=== PATIENT | male | born 1975 | race Caucasian/White ===

== ENCOUNTER 2017-11-23 17:13 | Emergency (ER) | payer OTHER, SELFPAY ==
[2017-11-23 19:03] VITALS: BP 132/102; PULSE 106; RESP 20; TEMP 37.7; O2SAT 98
[2017-11-23 19:06] VITALS: BMI 35.6
--- NOTE | 2017-11-23 19:08 | XR_ITS ---
XR chest 2V Ordering Physician: Terrance Abraham MD Patient Age: 42 years: Male HISTORY: ITS.REASON: PROD COUGH cough congestion TECHNIQUE: PA and lateral chest COMPARISON : None FINDINGS Peripheral lung thompson are clear with no pneumonia. Focal no focal infiltrate or parenchymal density.. The heart is normal in size. Normal pulmonary vascularity. No pleural effusions. No pneumothorax. Chest wall and T-spine unremarkable. Superior mediastinum appears satisfactory. Slightly generous/upper normal left dee. On lateral view there seems to be some prominence of hilar regions as well. Nonspecific.. Any outside old films would be very helpful for correlation. If cough persists low threshold for CT warranted to further evaluate dee particularly on left., And particularly if patient smoker IMPRESSION No focal pneumonia evident. Generous left dee upper normal prominence. Symptoms persist recommend follow-up chest film;, with low threshold for CT particular if patient smoker
[2017-11-23 19:20] VITALS: BP 155/89; PULSE 90; RESP 18; TEMP 37.7; O2SAT 96; BMI 35.8
[2017-11-23 19:29] LABS: Strep Scrn Group A (Rapid) Negative (Negative)
[2017-11-23 21:53] LABS: Basophils # 0.1 K/mm3 (0-0.2); Basophils % 1.5 % (0.1-2.0); Eosinophils # 0.1 K/mm3 (0.0-0.4); Eosinophils % 1.6 % (0.1-12.0); Hematocrit 50.7 % (42.0-52.0); Hemoglobin 17.2 g/dL (14.1-18.0); Lymphocytes % 22.8 K/mm3 (10-50); Mean Corpuscular HGB Conc 33.9 g/dL (31.8-35.4); Mean Corpuscular Hemoglobin 29.7 pg (27.0-31.2); Mean Corpuscular Volume 87.6 fl (80-94); Mean Platelet Volume 6.7 fl (7.4-10.4); Monocytes # 0.4 K/mm3 (0.1-1.0); Neutrophils # 2.8 K/mm3 (1.8-7.8); Platelet Count 243 K/mm3 (142-424); Red Blood Count 5.79 M/mm3 (4.60-6.20); Red Cell Distribution Width 12.9 % (11.5-17.5); White Blood Count 4.3 K/mm3 (4.8-10.8)
[2017-11-23 22:00] LABS: Alanine Aminotransferase 46 U/L (12-78); Albumin Level 4.4 gm/dL (3.4-5.0); Albumin/Globulin Ratio 1.1 (1.1-1.8); Alkaline Phosphatase 158 U/L (46-116); Anion Gap 12.8 mEq/L (5-15); Aspartate Amino Transferase 29 U/L (15-37); Bilirubin,Total 0.9 mg/dL (0.2-1.0); Blood Urea Nitrogen 10 mg/dL (7-18); Calcium 8.8 mg/dL (8.5-10.1); Carbon Dioxide 29 mmol/L (21.0-32.0); Chloride 101 mmol/L (98-107); Creatinine Clearance Estimated 145 mg/ml (0-300); Creatinine,Serum 1.15 mg/dL (0.70-1.30); Estimated Glomerular Filt Rate > 60 ml/min (>60); GFR (African American) > 60 ML/MIN (>60); Globulin 3.9 gm/dl (1.3-3.2); Glucose 93 mg/dL (74-106); Potassium 3.8 mmoL/L (3.5-5.1); Sodium 139 mmol/L (136-145); Total Protein,Serum 8.3 gm/dL (6.4-8.2)
--- NOTE | 2017-11-24 00:23 | HMH.EDURI ---
ED Disposition Clinical Impression: Bronchitis Disposition: Home, Self-Care Condition on Discharge: Good Prescriptions: Azithromycin [Zithromax 250mg tab] 250 mg PO DIRECTED #6 tab Benzonatate [Tessalon Perle 100mg Cap] 100 mg PO TID #21 cap predniSONE [Prednisone 20mg Tab] 20 mg PO BID #10 tab - Critical Care Critical Care Time: No Attestation: On 11/23/17, the high probability of a clinically significant, sudden or life threatening deterioration of the following system(s) required my full and direct attention, intervention and personal management. The time I documented below is in addition to time spent performing reported procedures but includes the following listed in this critical care notation. Medical Decision Making Vital Signs: 11/23/17 19:03 11/23/17 19:20 Temperature 99.8 F H 99.8 F H Temperature Source Oral Oral Pulse Rate [Left Radial] 106 H 90 Respiratory Rate 20 18 Blood Pressure [Left Arm] 132/102 155/89 Blood Pressure Mean [Left Arm] 112 111 Blood Pressure Source [Left Arm] Automatic Cuff Automatic Cuff Blood Pressure Position [Left Arm] Sitting Sitting 02 Sat by Pulse Oximetry 98 96 Oxygen Delivery Method Room Air Room Air - Lab Data Result diagrams: 11/23/17 21:30 11/23/17 21:30 Orders (Tests/Meds): ED MEDICATIONS Generic Name Dose Route Start Last Admin Trade Name Freq PRN Reason Stop Dose Admin Sodium Chloride 10 ml 11/23/17 21:38 Saline Flush 10ml Syringe IV 12/23/17 21:37 NEEDED PRN Maintain IV Site Discontinued Medications Generic Name Dose Route Start Last Admin Trade Name Freq PRN Reason Stop Dose Admin Acetaminophen 650 mg 11/23/17 22:53 11/23/17 22:58 Acetaminophen 325mg Tab PO 11/23/17 22:54 650 mg ONCE ONE Administration Ibuprofen 600 mg 11/23/17 22:53 11/23/17 22:57 Motrin 600mg Tablet PO 11/23/17 22:54 600 mg ONCE ONE Administration ORDERS Category Date Time Status Strep Screen Confirmation Stat Micro 11/23/17 19:11 Received - Matt Inquiry Pt receiving controlled substance: No URI/Sore Throat HPI - General Chief Complaint: Upper Respiratory Infection Stated Complaint: Cough, Body Aches, Fever Time Seen by Provider: 11/24/17 00:23 Mode of Arrival: Ambulatory Source of Information: Patient Limitations: No Limitations Description of Symptoms (Recalled from ER Triage Doc. 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 Complaint: fever, cough Onset (ago): day(s) Duration: intermittent Severity: moderate Relieving factors: nothing Description of mucous: yellow Able to tolerate fluids by mouth: Yes - Related Data Home Medications Medication Instructions Recorded Confirmed Meloxicam [Meloxicam] 15 mg PO DAILY 11/23/17 11/23/17 Metoprolol Tartrate [Metoprolol 100 mg PO BID 11/23/17 11/23/17 Tartrate 100mg Tablet] Omeprazole [Omeprazole 20mg 20 mg PO DAILY 11/23/17 11/23/17 Capsule] Simvastatin [Simvastatin] 20 mg PO DAILY 11/23/17 11/23/17 Previous Rx's Medication Instructions Recorded Azithromycin [Zithromax 250mg 250 mg PO DIRECTED #6 tab 11/24/17 tab] Benzonatate [Tessalon Perle 100mg 100 mg PO TID #21 cap 11/24/17 Cap] predniSONE [Prednisone 20mg 20 mg PO BID #10 tab 11/24/17 Tab] Allergies Allergy/AdvReac Type Severity Reaction Status Date / Time No Known Allergies Allergy Verified 11/23/17 23:01 [facility] History I have reviewed the patient's past medical history: Yes Medical History: Denies:: Cancer, Diabetes Mellitus Type 2, MRSA Amputation: No Fractures: No - *Social History Educational Level: Attended High School Smoking Status: Never smoker Alcohol Intake: never - Psychiatric History Expresses thoughts of harming self/others: None Suicide Plan Description: No Plan ROS Obtained: Yes All systems reviewed & no additional complaints
--- NOTE | 2017-11-24 00:26 | ED_ITS ---
ED Disposition Clinical Impression: Bronchitis Disposition: Home, Self-Care Condition on Discharge: Good Prescriptions: Azithromycin [Zithromax 250mg tab] 250 mg PO DIRECTED #6 tab Benzonatate [Tessalon Perle 100mg Cap] 100 mg PO TID #21 cap predniSONE [Prednisone 20mg Tab] 20 mg PO BID #10 tab - Critical Care Critical Care Time: No Attestation: On 11/23/17, the high probability of a clinically significant, sudden or life threatening deterioration of the following system(s) required my full and direct attention, intervention and personal management. The time I documented below is in addition to time spent performing reported procedures but includes the following listed in this critical care notation. Medical Decision Making Vital Signs: 11/23/17 19:03 11/23/17 19:20 Temperature 99.8 F H 99.8 F H Temperature Source Oral Oral Pulse Rate [Left Radial] 106 H 90 Respiratory Rate 20 18 Blood Pressure [Left Arm] 132/102 155/89 Blood Pressure Mean [Left Arm] 112 111 Blood Pressure Source [Left Arm] Automatic Cuff Automatic Cuff Blood Pressure Position [Left Arm] Sitting Sitting 02 Sat by Pulse Oximetry 98 96 Oxygen Delivery Method Room Air Room Air - Lab Data Result diagrams: 11/23/17 21:30 11/23/17 21:30 Orders (Tests/Meds): ED MEDICATIONS Generic Name Dose Route Start Last Admin Trade Name Freq PRN Reason Stop Dose Admin Sodium Chloride 10 ml 11/23/17 21:38 Saline Flush 10ml Syringe IV 12/23/17 21:37 NEEDED PRN Maintain IV Site Discontinued Medications Generic Name Dose Route Start Last Admin Trade Name Freq PRN Reason Stop Dose Admin Acetaminophen 650 mg 11/23/17 22:53 11/23/17 22:58 Acetaminophen 325mg Tab PO 11/23/17 22:54 650 mg ONCE ONE Administration Ibuprofen 600 mg 11/23/17 22:53 11/23/17 22:57 Motrin 600mg Tablet PO 11/23/17 22:54 600 mg ONCE ONE Administration ORDERS Category Date Time Status Strep Screen Confirmation Stat Micro 11/23/17 19:11 Received - Matt Inquiry Pt receiving controlled substance: No URI/Sore Throat HPI - General Chief Complaint: Upper Respiratory Infection Stated Complaint: Cough, Body Aches, Fever Time Seen by Provider: 11/24/17 00:23 Mode of Arrival: Ambulatory Source of Information: Patient Limitations: No Limitations Description of Symptoms (Recalled from ER Triage Doc. 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 Complaint: fever, cough Onset (ago): day(s) Duration: intermittent Severity: moderate Relieving factors: nothing Description of mucous: yellow Able to tolerate fluids by mouth: Yes - Related Data Home Medications Medication Instructions Recorded Confirmed Meloxicam [Meloxicam] 15 mg PO DAILY 11/23/17 11/23/17 Metoprolol Tartrate [Metoprolol 100 mg PO BID 11/23/17 11/23/17 Tartrate 100mg Tablet] Omeprazole [Omeprazole 20mg 20 mg PO DAILY 11/23/17 11/23/17 Capsule] Simvastatin [Simvastatin] 20 mg PO DAILY 11/23/17 11/23/17 Previous Rx's Medication Instructions Recorded Azithromycin [Zithromax 250m
== END 2017-11-24 00:40 | disposition home or self-care (01) ==
PROVIDERS: Family Medicine; Emergency Provider Emergency Medicine; Family Provider Nurse Practitioner Family
DX: J20.9 Acute bronchitis, unspecified (principal)
CPT/HCPCS: 71046; 80053; 85025; 87275; 87276; 87430; 99284

== ENCOUNTER → 2019-04-03 20:27 | Outpatient (CLI) | payer OTHER, SELFPAY ==
--- NOTE | 2019-04-03 | XR_ITS ---
XR knee RT 3V HISTORY: ITS.REASON: Pain in right knee ORDERING PHYSICIAN: Kayla Us APRN PATIENT AGE: 43 years COMPARISON: None FINDINGS: There are moderate osteoarthritic changes of the medial compartment and mild osteoarthritis of the patellofemoral joint. No fracture or dislocation. No lytic or blastic change. Small calcification is present along the medial femoral condyle suggesting prior medial collateral ligament injury. IMPRESSION: Moderate osteoarthritis. Old avulsion fracture medial femoral condyle suggesting prior medial collateral ligament injury
--- NOTE | 2019-04-03 | XR_ITS ---
XR knee LT 3V HISTORY: ITS.REASON: Pain in left knee ORDERING PHYSICIAN: Kayla Us APRN PATIENT AGE: 43 years COMPARISON: None FINDINGS: There are mild osteoarthritic changes involving the medial compartment and patellofemoral joint. No fracture or dislocation. No lytic or blastic change. IMPRESSION: Osteoarthritis
== END ==
PROVIDERS: PCP Nurse Practitioner Family; Visit Provider Nurse Practitioner Family
DX: M25.562 Pain in left knee (principal); M25.561 Pain in right knee
CPT/HCPCS: 73562

== ENCOUNTER 2020-05-22 16:37 | Emergency (ER) | payer OTHER, SELFPAY ==
--- NOTE | 2020-05-22 16:52 | XR_ITS ---
PROCEDURE: XR FOREARM LT 2V CLINICAL INDICATION: injury Pain following injury COMPARISON: No exams were available for comparison FINDINGS: No fracture or dislocation. No lytic or blastic change. There is normal mineralization. The joint spaces are well-preserved. No significant degenerative/arthritic changes. No erosive changes evident. Other findings:None. IMPRESSION: No acute findings. Dictated by: Patricio Eaton MD 05/22/2020 18:04 Electronically signed by Patricio Eaton MD in [place] 05/22/2020 18:04
--- NOTE | 2020-05-22 16:52 | XR_ITS ---
PROCEDURE: XR ELBOW LT MIN 3V CLINICAL INDICATION: injury Pain COMPARISON: No exams were available for comparison FINDINGS: No fracture or dislocation. No lytic or blastic change. There is normal mineralization. The joint spaces are well-preserved. No significant degenerative/arthritic changes. No erosive changes evident. Other findings:Incidental small enthesophyte at the olecranon IMPRESSION: No acute findings. Dictated by: Patricio Eaton MD 05/22/2020 18:06 Electronically signed by Patricio Eaton MD in [place] 05/22/2020 18:06
[2020-05-22 16:53] VITALS: BP 156/111; PULSE 71; RESP 21; TEMP 37; O2SAT 100; BMI 36.9
[2020-05-22 16:56] VITALS: BP 156/111; PULSE 71; RESP 21; TEMP 37; O2SAT 100; BMI 36.9
--- NOTE | 2020-05-22 17:37 | HMH.EDUTC ---
[facility] [place] Disposition Clinical Impression: Strain of left elbow Qualifiers: Encounter type: initial encounter Qualified Code(s): S46.912A - Strain of unspecified muscle, fascia and tendon at shoulder and upper arm level, left arm, initial encounter Tendinopathy of elbow Qualifiers: Laterality: left Qualified Code(s): M67.922 - Unspecified disorder of synovium and tendon, left upper arm Disposition: Home, Self-Care Condition on Discharge: Good Instructions: DI for Elbow Pain, Pulled Elbow, DI for Pulled Elbow Additional Instructions: Rest the extremity, apply ice for 15 minutes as tolerated three or four times per day, Wear the dev wrap for compression and the arm sling to rest your arm, Elevate the extremity as tolerated while you are resting. Take ibuprofen for pain. I sent in a prescription to your pharmacy. Follow up with Dr. Amaya (orthopedics) if you're not getting a lot better with in 48 to 72 hours. I put in a referral but you need to call his office and schedule an appointment. Follow up with your regular doctor. GO TO THE ER FOR ANY WORSENING SYMPTOMS Prescriptions: Ibuprofen [Ibuprofen 600mg Tablet] 600 mg PO Q6HP PRN #30 tab PRN Reason: Mild Pain Transmission Status: Sent to [facility] Referrals: Candace Gruber [Primary Care Provider] - Forms: Work/School Release Time of Disposition: 17:48 Medical Decision Making - Medical Records Medical records reviewed: No: I reviewed the patient's medical records. - Matt Inquiry Pt receiving controlled substance: No Vital Signs: 05/22/20 16:53 05/22/20 16:56 05/22/20 17:56 Temperature 98.6 F 98.6 F 98.6 F Temperature Source Oral Oral Pulse Rate 71 Pulse Rate [Right Brachial] 71 71 Respiratory Rate 21 21 21 Blood Pressure 156/111 H Blood Pressure [Right Arm] 156/111 H 156/111 H Blood Pressure Mean [Right Arm] 126 126 Blood Pressure Source [Right Arm] Automatic Cuff Automatic Cuff Blood Pressure Position [Right Arm] Sitting Sitting 02 Sat by Pulse Oximetry 100 100 Oxygen Delivery Method Room Air Room Air Orders (Tests/Meds): ED MEDICATIONS Discontinued Medications Generic Name Dose Route Start Last Admin Trade Name Freq PRN Reason Stop Dose Admin Ibuprofen 800 mg 05/22/20 17:57 05/22/20 18:00 Motrin 400mg Tablet PO 05/22/20 17:58 800 mg ONCE ONE Administration - Radiology Data #1 Image(s): Elbow Image Reviewed: Yes I reviewed the patient's radiology image, Yes I have reviewed radiologist's interpretation Preliminary Findings: No Fracture Seen PROCEDURE: XR ELBOW LT MIN 3V CLINICAL INDICATION: injury Pain COMPARISON: No exams were available for comparison FINDINGS: No fracture or dislocation. No lytic or blastic change. There is normal mineralization. The joint spaces are well-preserved. No significant degenerative/arthritic changes. No erosive changes evident. Other findings:Incidental small enthesophyte at the olecranon IMPRESSION: No acute findings. Dictated by: Patricio Eaton MD 05/22/2020 18:06 Electronically signed by Patricio Eaton MD in [place] 05/22/2020 18:06 #2 Image(s): Forearm Image Reviewed: Yes I reviewed the patient's radiology image, Yes I have reviewed radiologist's interpretation Preliminary Findings: No Fracture Seen PROCEDURE: XR FOREARM LT 2V CLINICAL INDICATION: injury Pain following injury COMPARISON: No exams were available for comparison FINDINGS: No fracture or dislocation. No lytic or blastic change. There is normal mineralization. The joint spaces are well-preserved. No significant degenerative/arthritic changes. No erosive changes evident. Other findings:None. IMPRESSION: No acute findings. Dictated by: Patricio Eaton MD 05/22/2020 18:04 Electronically signed by Patricio Eaton MD in [place] 05/22/2020 18:04 [facility] [place] HPI - General Stated complaint: AO injury to L arm when moving lawnmower Time Seen by Provider:
[2020-05-22 17:56] VITALS: BP 156/111; PULSE 71; RESP 21; TEMP 37; O2SAT 100
== END 2020-05-22 18:00 | disposition home or self-care (01) ==
PROVIDERS: Emergency Provider Nurse Practitioner Family; PCP Nurse Practitioner Family
DX: S46.912A Strain of unspecified muscle, fascia and tendon at shoulder and upper arm level, left arm, initial encounter (principal); X50.0XXA Overexertion from strenuous movement or load, initial encounter; Y92.69 Other specified industrial and construction area as the place of occurrence of the external cause; Y99.0 Civilian activity done for income or pay
CPT/HCPCS: 73080; 73090; 99201

== ENCOUNTER 2020-10-22 13:55 | Emergency (ER) | payer OTHER, SELFPAY ==
[2020-10-22 14:31] VITALS: BP 162/109; PULSE 94; RESP 16; TEMP 36.7; O2SAT 96; BMI 38.2
--- NOTE | 2020-10-22 14:41 | XR_ITS ---
PROCEDURE: XR CHEST PORTABLE CLINICAL HISTORY: chest pain COMPARISON: CR CXR2V XR chest 2V from 11/23/2017 FINDINGS: The cardiomediastinal silhouette and pulmonary vascularity are within normal limits. The lungs are clear without infiltrates, suspicious nodules, or pleural effusions. No acute bony abnormalities. IMPRESSION: No acute findings. Dictated by: Patricio Eaton MD 10/22/2020 14:49 Patricio Eaton MD in [place] 10/22/2020 14:49
--- NOTE | 2020-10-22 14:42 | HMH.EDCP ---
ED Disposition Clinical Impression: Acute viral syndrome Chest pain Qualifiers: Chest pain type: unspecified Qualified Code(s): R07.9 - Chest pain, unspecified Disposition: Home, Self-Care Condition on Discharge: Good Additional Instructions: You were seen on an emergency basis. It is very important that you follow up with your primary care provider and/or specialist as we discussed within 2 days. All labs and imaging were obtained and interpreted here to rule out life threatening emergencies, but your final results should be reviewed by your primary doctor at your follow up appointment. Please return to the emergency department if any of your symptoms worsen, or if they do not improve as we discussed. Prescriptions: Ondansetron [Zofran 4mg ODT] 4 mg PO Q6 PRN #9 tab.rapdis PRN Reason: Nausea Transmission Status: Pending to [facility] Referrals: Rosy Savage APRN [Primary Care Provider] - - Critical Care Critical Care Time: No Attestation: On 10/22/20, the high probability of a clinically significant, sudden or life threatening deterioration of the following system(s) required my full and direct attention, intervention and personal management. The time I documented below is in addition to time spent performing reported procedures but includes the following listed in this critical care notation. Medical Decision Making - Medical Records Medical records reviewed: Yes: I reviewed the patient's medical records. - Matt Inquiry Pt receiving controlled substance: No Vital Signs: 10/22/20 14:31 10/22/20 15:26 10/22/20 15:56 Temperature 98.1 F Temperature Source Oral Pulse Rate [Left Radial] 94 H 91 H 95 H Respiratory Rate 16 20 18 Blood Pressure [Right Arm] 162/109 H 150/85 H 168/113 H Blood Pressure Mean [Right Arm] 126 106 131 Blood Pressure Source [Right Arm] Automatic Cuff Automatic Cuff Automatic Cuff Blood Pressure Position [Right Arm] Sitting Sitting 02 Sat by Pulse Oximetry 96 97 99 Oxygen Delivery Method Room Air Room Air Room Air 10/22/20 16:26 10/22/20 16:52 Temperature Temperature Source Pulse Rate [Left Radial] 79 81 Respiratory Rate 20 Blood Pressure [Right Arm] 160/100 H 160/100 H Blood Pressure Mean [Right Arm] 120 120 Blood Pressure Source [Right Arm] Automatic Cuff Automatic Cuff Blood Pressure Position [Right Arm] Sitting Sitting 02 Sat by Pulse Oximetry 99 99 Oxygen Delivery Method Room Air Room Air - Lab Data Lab results reviewed: Yes: I reviewed the patient's lab results. Lab Results 10/22/20 15:27: WBC 9.8, RBC 5.98, Hgb 18.1 H, Hct 55.8 H, MCV 93.4, MCH 30.4, MCHC 32.6, RDW 13.7, Plt Count 357, MPV 12.5 H, Neut % (Auto) 80.6 H, Lymph % (Auto) 10.3, [place] % (Auto) 4.8, Eos % (Auto) 1.8, Baso % (Auto) 2.5 H, Neut # (Auto) 7.9 H, Lymph # (Auto) 1.0, [place] # (Auto) 0.5, Eos # (Auto) 0.2, Baso # (Auto) 0.3 H 10/22/20 15:27: Sodium 141, Potassium 4.3, Chloride 104, Carbon Dioxide 27, Anion Gap 14.3, BUN 19, Creatinine 1.20, Estimated Creat Clear 145, Estimated GFR 65, Est GFR ( Amer) 79, Glucose 111 H, Calcium 8.9, Troponin I < 0.01 10/22/20 15:27: SARS-CoV-2 IgG Ab (Rapid) Negative, SARS-CoV-2 IgM Ab (Rapid) Negative 10/22/20 19:25: Troponin I < 0.01 Result diagrams: 10/22/20 15:27 10/22/20 15:27 Orders (Tests/Meds): ED MEDICATIONS Discontinued Medications Generic Name Dose Route Start Last Admin Trade Name Delmer PRN Reason Stop Dose Admin Sodium Chloride 1,000 mls @ 999 mls/hr 10/22/20 15:45 10/22/20 15:46 Sod Chlor 0.9% 1000ml Bag IV 10/22/20 16:45 999 mls/hr .Q1H1M ARAMIS Administration Ondansetron HCl 4 mg 10/22/20 14:46 10/22/20 15:46 Ondansetron 4mg/2ml Vial IV 10/22/20 14:47 4 mg ONCE ONE Administration ORDERS Category Date Time Status Covid-19 Nasal PCR ([facility]) Routine Lab 10/22/20 15:41 Stop Req Covid-19 Nasal PCR Sendout Margarito Stat Lab 10/22/20 15:41 Received Troponin I Q3H Lab 10/23/20 01:
[2020-10-22 15:26] VITALS: BP 150/85; PULSE 91; RESP 20; O2SAT 97
[2020-10-22 15:54] LABS: Basophils # 0.3 K/mm3 (0-0.2); Basophils % 2.5 % (0.1-2.0); Eosinophils # 0.2 K/mm3 (0.0-0.4); Eosinophils % 1.8 % (0.1-12.0); Hematocrit 55.8 % (42.0-52.0); Lymphocytes % 10.3 % (10-50); Mean Corpuscular HGB Conc 32.6 g/dL (31.8-35.4); Mean Corpuscular Hemoglobin 30.4 pg (27.0-31.2); Mean Corpuscular Volume 93.4 fl (80-94); Mean Platelet Volume 12.5 fl (7.4-10.4); Monocytes # 0.5 K/mm3 (0.1-1.0); Monocytes % 4.8 % (1.7-9.3); Neutrophils # 7.9 K/mm3 (1.8-7.8); Neutrophils % 80.6 % (37.0-80.0); Platelet Count 357 K/mm3 (142-424); Red Blood Count 5.98 M/mm3 (4.60-6.20); Red Cell Distribution Width 13.7 % (11.5-17.5); White Blood Count 9.8 K/mm3 (4.8-10.8)
[2020-10-22 15:55] LABS: Chloride 104 mmol/L (98-107); Sodium 141 mmol/L (136-145)
[2020-10-22 15:56] VITALS: BP 168/113; PULSE 95; RESP 18; O2SAT 99
[2020-10-22 15:56] LABS: Potassium 4.3 mmoL/L (3.5-5.1)
[2020-10-22 15:58] LABS: Blood Urea Nitrogen 19 mg/dl (9-20); Creatinine Clearance Estimated 145 mL/min (50-200); Estimated Glomerular Filt Rate 65 ml/min (>60); GFR (African American) 79 ML/MIN (>60)
[2020-10-22 15:59] LABS: Anion Gap 14.3 mEq/L (5-15); Calcium 8.9 mg/dl (8.4-10.2); Carbon Dioxide 27 mmol/L (22.0-30.0); Glucose 111 mg/dl (74-100)
[2020-10-22 16:10] LABS: Hemoglobin 18.1 g/dL (14.1-18.0)
[2020-10-22 16:11] LABS: Troponin I < 0.01 ng/ml (0.00-0.034)
[2020-10-22 16:15] LABS: Coronavirus 19 IgG Antibody Negative (Negative); Coronavirus 19 IgM Antibody Negative (Negative)
[2020-10-22 16:26] VITALS: BP 160/100; PULSE 79; O2SAT 99
[2020-10-22 16:52] VITALS: BP 160/100; PULSE 81; RESP 20; O2SAT 99
--- NOTE | 2020-10-22 17:20 | PC.NURSE ---
Pt up to restroom.
[2020-10-22 20:02] LABS: Troponin I < 0.01 ng/ml (0.00-0.034)
[2020-10-22 20:40] VITALS: BP 158/99; PULSE 82; RESP 16; TEMP 36.7; O2SAT 99
== END 2020-10-22 20:44 | disposition home or self-care (01) ==
LOC: UTC 14:09 → ER 14:31
PROVIDERS: Emergency Provider Physician Assistant; PCP Nurse Practitioner
DX: R07.9 Chest pain, unspecified (principal); K21.9 Gastro-esophageal reflux disease without esophagitis; E78.5 Hyperlipidemia, unspecified; I10 Essential (primary) hypertension; Z01.84 Encounter for antibody response examination
CPT/HCPCS: 71045; 80048; 84484; 85025; 86328; 96365; 96375; 99282; J2405; U0003; U0004

== ENCOUNTER 2021-01-30 19:00 | Emergency (ER) | payer OTHER, SELFPAY ==
[2021-01-30 19:00] VITALS: BP 188/111; PULSE 84; RESP 20; TEMP 36.9; O2SAT 98; BMI 39.6
[2021-01-30 19:06] VITALS: BMI 34.8
--- NOTE | 2021-01-30 19:08 | XR_ITS ---
PROCEDURE: XR FOOT LT MIN 3V CLINICAL INDICATION: INJURY Pain COMPARISON: No exams were available for comparison FINDINGS: There is a nondisplaced fracture involving the midshaft of the 5th metatarsal The joint spaces are well-preserved. No significant degenerative/arthritic changes. No erosive changes evident. Other findings:None. IMPRESSION: Nondisplaced fracture midshaft 5th metatarsal Dictated by: Patricio Eaton MD 01/31/2021 05:33 Patricio Eaton MD in [place] 01/31/2021 05:33
--- NOTE | 2021-01-30 19:27 | HMH.EDUTC ---
[facility] [place] Clinical Impression: Fractured metatarsal bone Qualifiers: Encounter type: initial encounter Metatarsal bone: fifth Fracture type: closed Fracture alignment: nondisplaced Laterality: left Qualified Code(s): S92.355A - Nondisplaced fracture of fifth metatarsal bone, left foot, initial encounter for closed fracture Disposition: Home, Self-Care Condition on Discharge: Good Instructions: How to Use Crutches, How To Perform RICE (Rest, Ice, Compress, Elevate) Additional Instructions: *No weight bearing *RICE, Rest the extremity, Ice 15-20 minutes 3-4 times daily, Compress- wear the juan wrap as discussed as much as possible to help reduce swelling and pain, Elevate the extremity when at rest *Juan wrap is for support and help control swelling, use it except in the shower. Be sure that is not to tight but not to loose either *Elevate when resting *Ibuprofen 600-800mg every 6-8 hours as needed for pain an inflammation. If need something more can take Tylenol in between doses of Ibuprofen to help Immediately follow up with your family doctor for new or worsening of symptoms, or no noticeable improvement over the next 3-5 days Prescriptions: Ibuprofen [Ibuprofen 800mg Tablet] 800 mg PO TIDP PRN #30 tab PRN Reason: Moderate Pain Transmission Status: Pending to [facility] Referrals: Rosy Savage APRN [Primary Care Provider] - As needed Batsheva Celeste DPM [Staff Physician] - As needed (Call office in the morning for appointment) Forms: Work/School Release Time of Disposition: 19:57 Medical Decision Making - Matt Inquiry Pt receiving controlled substance: No Matt was queried for this patient: No Vital Signs: 01/30/21 19:00 Temperature 98.4 F Temperature Source Temporal Artery Scan Pulse Rate [Right Brachial] 84 Respiratory Rate 20 Blood Pressure [Right Arm] 188/111 H Blood Pressure Mean [Right Arm] 136 Blood Pressure Source [Right Arm] Automatic Cuff Blood Pressure Position [Right Arm] Sitting 02 Sat by Pulse Oximetry 98 Orders (Tests/Meds): ORDERS Category Date Time Status Foot XR left minimum 3 views [XR foot LT min 3V] Stat Exams 01/30/21 19:08 Taken - Radiology Data #1 Image(s): Foot/Toes Image Reviewed: Yes I reviewed the patient's radiology image Fractured 5th Metatarsal - Physician Consults Physician Consulted: Jose Luis Time: 19:30 Reason -: Orthopedic Eval/Care Comment/Response: Dr Amaya paged awaiting call back, Spoke with Dr Amaya he advised place in boot, crutches, NSAID and call Dr Celeste office in the morning for appointment Medical Decision Narrative: Patient states that he has taken IBUprofen in the past without reactions or complications with his other medications [facility] [place] HPI - General Stated complaint: AO 0310@1330 injured L Foot Time Seen by Provider: 01/30/21 19:27 Mode of Arrival: Ambulatory Source of Information: Patient Limitations: No Limitations Description of Symptoms (Recalled from Triage Doc. by RN): PATIENT C/O INJURY TO LEFT FOOT AFTER SLIPPING OFF OF A TRUCK AT WORK AND GETTING HIS FOOT CAUGHT BETWEEN 2 CINDER BLOCKS AT APPROX 1330 TODAY HEENT Symptoms (Recalled from RN notes): No Resp Symptoms (Recalled from RN notes): No Skin Symptoms (Recalled from RN notes): No MS Symptoms (Recalled from RN notes): Yes Functional Status (Recalled from RN notes): WNL - History of Present Illness Provider Complaint: Patient states that he was stepping up on rail on truck when his foot slipped and fell and his left foot went into hole on cinder block then another block fell and hit him in the left foot Now he is having pain,swelling and bruising to to side of foot below his 5th toe States that happened around 1330 today and pain and swelling has continued to get worse Denies any other injury - Related Data Home Medications Medication Instructions Recorded Confirmed Omeprazole [Omeprazole 20mg 20 mg PO DAILY 11/23/17 01/30/21 Capsule]
--- NOTE | 2021-01-30 19:37 | PC.NURSE ---
AWAITING RETURN PAGE FROM DR. ANDREWS
[2021-01-30 20:23] VITALS: BP 188/111; PULSE 84; RESP 20; TEMP 36.9; O2SAT 98
== END 2021-01-30 20:25 | disposition home or self-care (01) ==
PROVIDERS: Emergency Provider Nurse Practitioner; PCP Nurse Practitioner
DX: S92.355A Nondisplaced fracture of fifth metatarsal bone, left foot, initial encounter for closed fracture (principal); W01.0XXA Fall on same level from slipping, tripping and stumbling without subsequent striking against object, initial encounter; Y92.69 Other specified industrial and construction area as the place of occurrence of the external cause; Y99.0 Civilian activity done for income or pay
CPT/HCPCS: 29515; 73630; 99202; G0463

== ENCOUNTER → 2021-02-25 13:16 | Outpatient (CLI) | payer OTHER, SELFPAY ==
--- NOTE | 2021-02-25 13:19 | XR_ITS ---
PROCEDURE: XR FOOT WT BEARING LT 3V CLINICAL INDICATION: foot pain Follow-up fracture COMPARISON: CR XR FOOT LT MIN 3V from 01/30/2021 FINDINGS: Nondisplaced oblique fracture involves the mid shaft the 5th metatarsal. Fracture line may be somewhat less distinct compared to the previous exam no callus formation or periosteal reaction. The joint spaces are well-preserved. No significant degenerative/arthritic changes. No erosive changes evident. Other findings:Mildly prominent calcaneal spur IMPRESSION: Nondisplaced fracture 5th metatarsal. Fracture line is somewhat less distinct which could indicate early healing Dictated by: Patricio Eaton MD 02/25/2021 14:17 Patricio Eaton MD in [place] 02/25/2021 14:17
== END ==
PROVIDERS: PCP Nurse Practitioner; Visit Provider Podiatrist
DX: T14.8XXA Other injury of unspecified body region, initial encounter (principal); S92.355G Nondisplaced fracture of fifth metatarsal bone, left foot, subsequent encounter for fracture with delayed healing; S99.922D Unspecified injury of left foot, subsequent encounter
CPT/HCPCS: 73630

== ENCOUNTER → 2021-03-20 07:13 | Outpatient (CLI) | payer OTHER, SELFPAY ==
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
== END ==
PROVIDERS: PCP Nurse Practitioner; Visit Provider Podiatrist
DX: S92.355A Nondisplaced fracture of fifth metatarsal bone, left foot, initial encounter for closed fracture (principal)
CPT/HCPCS: 73700

== ENCOUNTER → 2022-11-11 06:45 | Outpatient (CLI) | payer OTHER, SELFPAY ==
--- NOTE | 2022-11-11 06:46 | NM_ITS ---
APPROVED REPORT Exam: Nuclear Stress Test Indication: Chest pain, Abnormal EKG, HTN, High cholesterol, Family history Patient Location: Outpatient Stress Tech: Elena Kelly PR Tech:Sarah Box, ARRT, RT (R)(N) Ht: 6 ft 1 in Wt: 302 lbs HR: 86 bpm BP: 138/90 mmHg BSA: 2.56 m2 TID: 1.08 BMI: 39.8 History: Chest pain, Abnormal EKG, HTN, High cholesterol, Family history Procedure: Patient exercised on Christiano protocol 8:30 minutes and sec, resting heart rate 86 bpm, resting blood pressure 138/90 mmHg, with exercise maximum heart rate achived was 154 bpm which is 89 % of the maximum predicted heart rate and blood pressure was 178/86 mmHg. Test was stopped due to SOB. Patient denied any complaint of chest pain. Patient has good exercise capacity, achieved 10.1 METs of workload on treadmill, the blood pressure response to exercise was Adequate. Electrocardiogram Resting electrocardiogram shows sinus rhythm nonspecific ST-T changes, with exercise there is less than 1.[address] segment depression noted from the baseline EKG. The EKG portion of the exercise Myoview was nondiagnostic due to baseline abnormal EKG. Cardiac Stress and Resting SPECT Images: Cardiac Stress and Resting SPECT images were obtained using technetium 99m Myoview 32.5 mCi stress and 10.10 mCi at rest. Gated SPECT for analysis of segmental wall motion and calculation of the ejection fraction also done. Cardiac stress and muscle SPECT images show uniform myocardial activity without segmental perfusion abnormality, computer ejection fraction is over 65% with no regional wall motion abnormality, right ventricle is normal size and contractility. Conclusion: 1. The EKG portion of the exercise Myoview is nondiagnostic. Due to baseline abnormal EKG. Patient has good exercise capacity achieved 10.1 METs of workload on treadmill, the blood pressure response to exercise was adequate, there was no exercise-induced chest discomfort. 2. No scintigraphic evidence of reversible ischemia seen at this level of exercise, computer derived ejection fraction is over 65% with no regional wall motion abnormality, right ventricle is normal size and contractility. 3. Normal exercise Myoview study. Electronically signed by : Uziel Yo MD 11/11/2022 20:00:05
--- NOTE | 2022-11-11 06:46 | CA_ITS ---
APPROVED REPORT Exam: Exercise Treadmill Technologist: Elena Garza, Ht: 6 ft 1 in Wt: 302 lbs BSA: 2.56 m2 HR: 78 bpm BP: 127/86 mmHg Medical History Medications: Omeprazole,,,,, Metoprolol Tartrate,,,,, RoSUVASTATIN,,,,, Lisinopri/HCTZ,,,,, Stress Test Details Test: Christiano HR Resting HR: 86 bpm Max Heart Rate (APMHR): 173.448603 bpm Max HR Achieved: 154 bpm Target HR (85% APMHR): 147.238058 bpm % of APMHR: 89.02 Recovery HR: 101 bpm BP Resting BP: 138/90 mmHg Max BP: 178/86 mmHg Recovery BP: 145.0/90.0 mmHg ECG Resting ECG: NSR, LPFB, low voltage QRS, inferior ST-T abns, lateral T wave abns Clinical Exercise duration: 08:30 min Highest Stage Achieved: II Exercise capacity: 10.1 METs Stress ECG Conclusion Exercised 8:30 into stage III of Christiano Protocol. Max HR: 154 % of PM: 89% Max BP: 178/86 METs: 10.1 Test stopped due to: SOA, fatigue Symptoms: No CP. Arrhythmias/Ectopy: Rare PVC. ST-T Changes: Exaggeration of baseline ST-T abns inferiorly & normalization of baseline T wave abns laterally. Conclusion: Non-diagnostic GXT due to baseline abns. Myoview images reported separately. Test Summary REST . . . . . . . Sitting REST . . . . . . . Standing REST 04:21 0.0 0.0 86 . 138/ 90 . . Stage 1 01:00 10.0 1.7 102 . . . . Stage 1 02:00 10.0 1.7 112 . . . . Stage 1 03:00 10.0 1.7 112 . 166/ 90 . . Stage 2 01:00 12.0 2.5 124 . . . . Stage 2 02:00 12.0 2.5 130 . . . . Stage 2 03:00 12.0 2.5 135 . 158/ 86 . . Stage 3 01:00 14.0 3.4 145 . . . . Stage 3 02:00 14.0 3.4 149 . 178/ 86 . . Stage 3 02:30 14.0 3.4 153 . 178/ 86 . Stop exercise at 08:30 RECOVERY 01:00 0.0 0.0 131 . . . . RECOVERY 02:00 0.0 0.0 107 . . . . RECOVERY 03:00 0.0 0.0 101 . 160/ 88 . . RECOVERY 04:00 0.0 0.0 102 . 156/ 84 . . RECOVERY 05:00 0.0 0.0 101 . 145/ 90 . . RECOVERY 05:27 0.0 0.0 100 . 145/ 90 . . Electronically signed by : Uziel Yo MD 11/11/2022 19:57:08
--- NOTE | 2022-11-11 06:46 | CA_ITS ---
APPROVED REPORT EXAM: Comprehensive 2D, Doppler, and color-flow Echocardiogram Chief Crew Scheduler: Laurel Reyes RT(R) Ht: 6 ft 1 in Wt: 302lbs BSA: 2.56 BP: 129/82 mmHg Indications: CP, family history of CAD, abn EKG, HTN, hyperlipidemia, obesity. 2D Dimensions LVOT 2.06 cm (M/F) 1.5-2.5 M-Mode Dimensions RVDd 2.70 cm (0.9-2.6) LA Diam 4.23 cm (1.9-4.0) LVDd 4.56 cm (3.5-5.7) Ao Diam 3.35 cm (2.0-3.7) LVDs 3.04 cm (3.5-5.7) IVSd 0.91 cm (0.6-1.1) PWd 0.95 cm (0.6-1.1) EF (Teich) 62.10% FS 33.30% EDV (Teich) 95.40 mL ESV (Teich) 36.20 mL LV Diastology E Decel Time 180.00 (160-240 msec) E/A Ratio 0.7 MED E' 7.00 (< 7 cm/sec) E'/MED E' Ratio 8.84 (>14) LAT E' 7.60 (<10 cm/sec) E/LAT E' Ratio 8.14 (>14) Mitral Valve MV E Max Tesfaye. 62.00 (40-130 cm/s) MV A Velocity 83.00 (40-130 cm/s) E/A Ratio 0.75 MV Decel. Time 180.00 (160-240 ms) MV PHT 53.00 ms Left Ventricle Left atrium is mildly enlarged, left ventricle is normal size, mild concentric left ventricular hypertrophy, estimated ejection fraction 55% with no regional wall motion abnormality, grade 1 diastolic dysfunction seen without tissue Doppler evidence of raise left atrial pressure. Right Ventricle Right atrium and right ventricle are mildly enlarged with normal contractility. Aortic Valve Aortic valve is minimally thickened and fibrosed there is no aortic stenosis or aortic insufficiency. Mitral Valve Mitral valve is grossly normal, there is trace mitral regurgitation. Tricuspid Valve Tricuspid grossly normal, there is trace tricuspid regurgitation, tricuspid regurgitation jet velocity is inadequate for calculation of the right ventricular systolic pressure. Pulmonic Valve Pulmonic valve is poorly visualized. Great Vessels Aortic root is normal size. Inferior vena cava is poorly visualized. Pericardium No significant pericardial effusion noted. Conclusion 1. Mild biatrial enlargement, normal left ventricular size, mild concentric left ventricular hypertrophy, estimated ejection fraction 55% with no regional wall motion abnormality, grade 1 diastolic dysfunction seen without tissue Doppler evidence of raise left atrial pressure. 2. Mildly enlarged right ventricle with normal contractility. 3. Trace mitral and tricuspid regurgitation. 4. No significant pericardial effusion. 5. Inferior vena cava is poorly visualized. Electronically signed by : Uziel Yo MD 11/11/2022 18:12:52
--- NOTE | 2022-11-11 08:24 | HMH.ITSHM ---
Current Home Medications as stated by this patient Winston Jean or sales support representative. []SIMVASTATIN ROSUVASTATIN OMEPRAZOLE MEOTPROLOL LISINOPRIL IBUPROFEN
== END ==
PROVIDERS: PCP Nurse Practitioner; Visit Provider Physician Assistant
DX: Z82.49 Family history of ischemic heart disease and other diseases of the circulatory system (principal); I10 Essential (primary) hypertension; E78.5 Hyperlipidemia, unspecified; R94.31 Abnormal electrocardiogram [ECG] [EKG]
CPT/HCPCS: 78452; 93017; 93306; A9502

== ENCOUNTER 2024-01-06 20:19 | Emergency (ER) | payer OTHER, SELFPAY ==
[2024-01-06 20:21] VITALS: BP 166/108; PULSE 94; RESP 20; TEMP 36.8; O2SAT 96; BMI 33.0
[2024-01-06 20:30] VITALS: BP 161/98; PULSE 91; O2SAT 99
--- NOTE | 2024-01-06 20:34 | PC.NURSE ---
on phone with [facility] ED doctor speaking to hand specialist
--- NOTE | 2024-01-06 20:38 | PC.NURSE ---
ED doctor on phone with [facility]
[2024-01-06] MEDS: IBUPROFEN 600 MG TABLET PO (20:40)
[2024-01-06] MEDS: TET/DIPHTH/PERT-ADULT 0.5ML SYRINGE 0.5 ML IM (20:40)
[2024-01-06] MEDS: BACITRACIN ZINC OINT 30GM TUBE TP (20:40)
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
[2024-01-06 21:01] VITALS: BP 153/97; PULSE 87; O2SAT 99
[2024-01-06] MEDS: OXYCODONE 5MG IMMEDIATE RELEASE TABLET 5 MG PO (21:01)
[2024-01-06 21:11] VITALS: BP 158/78; PULSE 89; RESP 18; TEMP 36.8; O2SAT 97
== END 2024-01-06 21:17 | disposition home or self-care (01) ==
PROVIDERS: Emergency Provider Emergency Medicine; PCP Nurse Practitioner
DX: T23.201A Burn of second degree of right hand, unspecified site, initial encounter (principal); X10.2XXA Contact with fats and cooking oils, initial encounter; I10 Essential (primary) hypertension; E78.5 Hyperlipidemia, unspecified; Z23 Encounter for immunization
CPT/HCPCS: 90471; 90715; 99283

== ENCOUNTER 2024-04-22 14:00 | Outpatient (RCR) | payer OTHER, SELFPAY | END 2024-04-22 14:05 | disposition home or self-care (01) | LOC: PT 14:00 | PROVIDERS: Visit Provider Nurse Practitioner | DX: M79.641 Pain in right hand (principal); T23.0 Burn of unspecified degree of wrist and hand | CPT/HCPCS: 97110; 97140; 97163; 97164; 97597; 97598 ==

== ENCOUNTER 2024-10-19 07:41 | Outpatient (RCR) | payer OTHER, SELFPAY | END 2024-10-19 23:59 | disposition home or self-care (01) | LOC: PT 07:41 | PROVIDERS: Visit Provider Nurse Practitioner Family | DX: L91.0 Hypertrophic scar (principal) | CPT/HCPCS: 97163 ==